=== PATIENT | male | born 1990 | race Caucasian/White ===

== ENCOUNTER 2018-12-27 01:41 | Emergency (ER) | payer OTHER ==
[~2018-12-27] VITALS: Ht 177.8 cm; Wt 99.8 kg
[2018-12-27] MEDS ORDERED: PROSCAR5 MG PO (01:54)
[2018-12-27] MEDS ORDERED: SPIRONOLACTONE50 MG PO (01:55)
== END 2018-12-27 02:11 | disposition home or self-care (01) ==
LOC: ED 01:41
DX: T18.128A Food in esophagus causing other injury, initial encounter (principal); Z79.899 Other long term (current) drug therapy
CPT/HCPCS: 99283